=== PATIENT | male | born 1945 | race Caucasian/White ===

== ENCOUNTER → 2016-08-04 | Outpatient (CLI) | payer MEDICARE, OTHER ==
--- NOTE | ~2016-08-04 | ST ---
Unit #: [id number] #: [id number] Patient: NAA RICO [id number] [address] [address] [id number] O MR#: [id number] NAME: NAA RICO : 1945 SEX: M STUDY DATE/TIME: 08/04/2016 UNIT: [facility] ROOM: STUDY DESCRIPTION: EKG portion of exercise stress Attending Physician: Yanni Parikh M.D. Referring Physician: Yanni Parikh M.D. Primary Care Physician: Rogelio Weber M.D. CARDIOLOGY REPORT EXAM EKG portion of an exercise Cardiolite stress test. DESCRIPTION Baseline EKG shows sinus bradycardia with a rate of 53 BPM. The patient exercised on the treadmill according to Lazaro protocol for a total of 10 minutes and 43 seconds, achieving a work level of 11.6 METs. Resting heart rate was 53. Maximal heart rate was 141 BPM representing a 93% of the max predicted heart rate. Patient's symptoms were shortness of breath. No arrhythmias were noted. The test was stopped due to achieving heart rate. IMPRESSION 1. There are no ST-T wave changes. 2. Patient is asymptomatic. 3. No arrhythmias. 4. Please correlate with Cardiolite imaging. 5. 1. Dictated by... Apolonia Parker A.P.R.N. for Yanni Parikh M.D. AM/naomie TD: 08/05/2016 09:28 JOB #: [id number] CARDIOLOGY REPORT Page 1 of 1 X Apolonia Parker APRN CARDIOLOGY REPORT
--- NOTE | ~2016-08-04 | TH ---
Unit #: [id number] #: [id number] Patient: NAA RICO [id number] [address] [address] [id number] O MR#: [id number] NAME: NAA RICO. : 1945 SEX: M STUDY DATE/TIME: 08/04/2016 UNIT: [facility] ROOM: STUDY DESCRIPTION: Attending Physician: Yanni Parikh M.D. Referring Physician: Yanni Parikh M.D. Primary Care Physician: Rogelio Weber M.D. CARDIOLOGY REPORT EXAM Exercise Cardiolite stress test, nuclear portion. PROCEDURE Using technetium 99m labeled Cardiolite, rest and stress SPECT images were obtained. Multiple SPECT images were obtained in various views including horizontal and vertical long axis and short axis views of the left ventricle. Images were obtained by gated SPECT method. The patient was administered 10.57 mCi of Cardiolite at rest. The patient was administered 32.5 mCi of Cardiolite at peak exercise. Total exercise time is 10 minutes and 43 seconds. On the stress images, there is a small area of mild decreased isotope activity in the anterior septal wall. The rest images show a larger area of decreased isotope activity anteroseptally. Comparing rest and stress images, there is no obvious stress-induced ischemia noted. The small area of predominantly fixed defect seen anteroseptally is most likely due to soft tissue artifact. The left ventricular ejection fraction is calculated to be 66%. There is no focal wall motion abnormality seen. CONCLUSION 1. No obvious stress-induced ischemia noted. 2. There is a small area of predominantly fixed defect seen anteroseptally which is most likely due to soft tissue artifact. 3. The left ventricular ejection fraction is calculated to be 66%. 4. There is no focal wall motion abnormality seen. 5. Normal exercise Cardiolite stress test. Dictated by... Johanny Martins TD: 08/04/2016 16:18 JOB #: [id number] Unit #: [id number] #: [id number] Patient: NAA RICO CARDIOLOGY REPORT Page 1 of 1 X Yanni Parikh MD <ELECTRONICALLY SIGNED> 09/20/16 [facility] CARDIOLOGY REPORT
== END | disposition home or self-care (01) ==
LOC: CNUC 08:29
DX: R06.02 Shortness of breath (principal); I34.0 Nonrheumatic mitral (valve) insufficiency; I37.1 Nonrheumatic pulmonary valve insufficiency; I10 Essential (primary) hypertension; I51.7 Cardiomegaly; I77.819 Aortic ectasia, unspecified site; R94.39 Abnormal result of other cardiovascular function study
CPT/HCPCS: 78452; 93017; 93306; A9500